=== PATIENT | female | born 1965 | race Caucasian/White ===

== ENCOUNTER 2016-10-23 18:34 | Emergency (ER) | payer SELFPAY ==
--- NOTE | 2016-10-23 19:55 | ED NURSING NOTES ---
Clinical Report - Nurses [place] [address] [place] [address] 10/23/2016 18:38 Patient: LENA PEGUERO TRIAGE Triage time 18:43. Acuity: LEVEL 4. Chief Complaint: INJURY TO RIGHT and LEFT HAND. INJURY TO THE RIGHT MIDDLE FINGER, RIGHT RING FINGER, LEFT MIDDLE FINGER and LEFT INDEX FINGER. JAZMYN COMA SCORE: [place] Coma Scale: 15- eyes open spontaneously (4); best verbal response- oriented x 4 (5); best motor response- obeys commands (6). --18:51 Ramsey Miller R.N. 18:43 10/23/16. BP: 147/95. HR: 87. RR: 20. O2 saturation: 99% on room air. Temp: 98.1 F (oral). Pain level now: 02/07. --18:51 Ramsey Miller R.N. Weight: 72.5 kg stated. Height/Length: 63 inches Per Patient. BMI: 28.3. --18:45 Ramsey Miller R.N. Medications Vitamin D Oral. --18:45 Ramsey Miller R.N. OTC vitamins . --18:45 Ramsey Miller R.N. Allergies wheat . --18:44 Ramsey Miller R.N. Gluten. --18:44 Ramsey Miller R.N. History Arrived by private vehicle. Historian: patient and family. Accompanied by family. This occurred just prior to arrival. ( Fingers were caught between heavy well parts). 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 SOCIAL HX: Never smoker. No alcohol use or drug use. ABUSE ASSESSMENT: No report of abuse. --18:51 Ramsey Miller R.N. PAST MEDICAL HX: Tetanus status: unknown. --18:54 Ramsey Miller R.N. PROBLEMS: Diverticulitis. Constocondritis. Hypertension. Seizure. --18:45 Ramsey Miller R.N. ADDITIONAL SURGERIES: Cholecystectomy. Hysterectomy. --18:45 Ramsey Miller R.N. Interventions ID band on patient. To treatment room. --18:51 Ramsey iMller R.N. PHYSICAL ASSESSMENT GENERAL / NEURO / PSYCH: Oriented X 4. Alert. Appears in pain and anxious. EXTREMITIES: ( Left 3rd & 4th fingers with crush injuries, 3rd finger has nailbed lac. Right 3rd & 4th fingers are bruised at the nailbeds from crush injury. +CMS.). --18:55 Ramsey Miller R.N. NURSING PROGRESS NOTES Reassurance given. Two patient identifiers checked. Call light placed in reach. Side rails up x 2. Safety measures: (seizure pads on). Bed placed in lowest position. Brakes of bed on. Patient ready for evaluation- chart flagged. --18:56 Ramsey Miller R.N. 19:22 10/23/2016 Ancef (CeFAZolin Sodium) IM 2 gm given. Given in the right gluteus preeti. Allergies verified and confirmed 5 rights. --19:22 Joceline Aaron R.N. Wound cleansed with sterile saline and chlorhexidine (Removed some antony stuck underneath the laceration). --19:27 [facility]. DISPOSITION / DISCHARGE 20:08 10/23/16. No learning barriers present. Discharge instructions provided and reviewed with the patient and spouse. Reviewed warnings. Reviewed medication(s). Treatments reviewed. Reviewed referrals. Activity restrictions reviewed. Patient verbalized understanding. Written instructions provided in [place]. The patient was discharged home and accompanied by spouse. She left the Emergency Department ambulatory and via private vehicle. Spouse driving. --20:08 Tea Gómez R.N. 20:06 10/23/16. BP: 142/83. HR: 80. RR: 15. O2 saturation: 99%. Temp: deferred. Pain level now: 12/08. --20:08 Tea Gómez R.N. Locked/Released at 10/23/2016 20:14 by Tea Gómez R.N.
--- NOTE | 2016-10-23 19:55 | ED ORDER SUMMARY ---
..... Patient: LENA PEGUERO OrderSheet [facility] VisitID: [id number] [address] [place] [address] 50y, F Registration Date/Time: 10/23/2016 ORDER SHEET Weight: 72.5 kg (stated) Allergies: wheat , Gluten GENERAL ORDERS: Hand 3 or 4V Bilat Urgent (18:48 10/23/2016 EKdevinlekristyn P.A.-C) (Ack 18:49 Nicole) (19:22 CBradburn R.N.) Splint (Finger) (Both) (Middle) (Aluminum Foam) (19:50 10/23/2016 EKchina P.A.-C) (20:01 CBradburn R.N.) MEDICATION ORDERS: Ancef IM 2 gm (NOW) (19:13 10/23/2016 Wu P.A.-C) (Ack 19:13 CBradburn R.N.) (19:22 CBradburn R.N.) IV FLUIDS: ORDER SHEET NOTES: [Electronically signed by Tea Gómez R.N. (20:14 10/23/2016)] [Electronically signed by Emily Roth P.A.-C (21:58 10/23/2016)] [Electronically locked/signed by Tea Gómez R.N. (20:14 10/23/2016)]
--- NOTE | 2016-10-23 19:55 | ED NURSING NOTES ---
Clinical Report - Nurses [place] [address] [place] [address] 10/23/2016 18:38 Patient: LENA PEGUERO TRIAGE Triage time 18:43. Acuity: LEVEL 4. Chief Complaint: INJURY TO RIGHT and LEFT HAND. INJURY TO THE RIGHT MIDDLE FINGER, RIGHT RING FINGER, LEFT MIDDLE FINGER and LEFT INDEX FINGER. JAZMYN COMA SCORE: [place] Coma Scale: 15- eyes open spontaneously (4); best verbal response- oriented x 4 (5); best motor response- obeys commands (6). --18:51 Ramsey Miller R.N. 18:43 10/23/16. BP: 147/95. HR: 87. RR: 20. O2 saturation: 99% on room air. Temp: 98.1 F (oral). Pain level now: 02/07. --18:51 Ramsey Miller R.N. Weight: 72.5 kg stated. Height/Length: 63 inches Per Patient. BMI: 28.3. --18:45 Ramsey Miller R.N. Medications Vitamin D Oral. --18:45 Ramsey Miller R.N. OTC vitamins . --18:45 Ramsey Miller R.N. Allergies wheat . --18:44 Ramsey Miller R.N. Gluten. --18:44 Ramsey Miller R.N. History Arrived by private vehicle. Historian: patient and family. Accompanied by family. This occurred just prior to arrival. ( Fingers were caught between heavy well parts). 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 SOCIAL HX: Never smoker. No alcohol use or drug use. ABUSE ASSESSMENT: No report of abuse. --18:51 Ramsey Miller R.N. PAST MEDICAL HX: Tetanus status: unknown. --18:54 Ramsey Miller R.N. PROBLEMS: Diverticulitis. Constocondritis. Hypertension. Seizure. --18:45 Ramsey Miller R.N. ADDITIONAL SURGERIES: Cholecystectomy. Hysterectomy. --18:45 Ramsey Miller R.N. Interventions ID band on patient. To treatment room. --18:51 Ramsey Miller R.N. PHYSICAL ASSESSMENT GENERAL / NEURO / PSYCH: Oriented X 4. Alert. Appears in pain and anxious. EXTREMITIES: ( Left 3rd & 4th fingers with crush injuries, 3rd finger has nailbed lac. Right 3rd & 4th fingers are bruised at the nailbeds from crush injury. +CMS.). --18:55 Ramsey Miller R.N. NURSING PROGRESS NOTES Reassurance given. Two patient identifiers checked. Call light placed in reach. Side rails up x 2. Safety measures: (seizure pads on). Bed placed in lowest position. Brakes of bed on. Patient ready for evaluation- chart flagged. --18:56 Ramsey Miller R.N. 19:22 10/23/2016 Ancef (CeFAZolin Sodium) IM 2 gm given. Given in the right gluteus preeti. Allergies verified and confirmed 5 rights. --19:22 Joceline Aaron R.N. Wound cleansed with sterile saline and chlorhexidine (Removed some antony stuck underneath the laceration). --19:27 [facility]. DISPOSITION / DISCHARGE 20:08 10/23/16. No learning barriers present. Discharge instructions provided and reviewed with the patient and spouse. Reviewed warnings. Reviewed medication(s). Treatments reviewed. Reviewed referrals. Activity restrictions reviewed. Patient verbalized understanding. Written instructions provided in [place]. The patient was discharged home and accompanied by spouse. She left the Emergency Department ambulatory and via private vehicle. Spouse driving. --20:08 Tea Gómez R.N. 20:06 10/23/16. BP: 142/83. HR: 80. RR: 15. O2 saturation: 99%. Temp: deferred. Pain level now: 12/08. --20:08 Tea Gómez R.N. Locked/Released at 10/23/2016 20:14 by Tea Gómez R.N.
--- NOTE | 2016-10-23 19:55 | ED CLINICAL REPORT ---
Clinical Report - Physicians/Mid Levels [facility] [address] [place] [address] 10/23/2016 18:38 Patient: LENA PEGUERO [facility]#: [id number] Time Seen: 18:40 Oct 23 2016. Arrived- By private vehicle. HISTORY OF PRESENT ILLNESS Chief Complaint: Injury to the right and left hand. The injury happened just prior to arrival. Occurred at home. The patient sustained a crush injury. Patient is experiencing severe pain. Patient denies injury to the head or neck. 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 Patient is right-hand dominant. Last rangers of the middle digits. There is a darker just prior to arrival.). REVIEW OF SYSTEMS The patient sustained a laceration. No tingling or numbness. All systems otherwise negative, except as recorded above. PAST HISTORY The patient's dominant hand is the right. She has not had a prior injury to the same area. SOCIAL HISTORY Never smoker. No alcohol use or drug use. ADDITIONAL NOTES The nursing notes have been reviewed. PHYSICAL EXAM Vital Signs: 10/23/2016 20:06 BP: 142/83. HR: 80. RR: 15. O2 saturation: 99%. Pain level now: 8/10. Appearance: Alert. Head: Head atraumatic. Neck: Normal inspection. Neck supple. CVS: Normal heart rate and rhythm. Heart sounds normal. Respiratory: No respiratory distress. Breath sounds normal. Extremities: Tip of left index finger: (minor swelling/ tenderness, no nail injury.). Tip of right middle finger: (subungal hematoma, small). Tip of left middle finger: laceration; (lac proximal to nail bed). No subungual hematoma or nail avulsion on the left middle finger or tip amputation of the left middle finger. No hand injury. Neuro, Vascular and Tendons: Vascular status intact. No pulse deficit present. Motor intact. No functional tendon deficit or tendon injury seen. Neuro: Oriented X 3. PROGRESS AND PROCEDURES Laceration Repair: Time: 1949. Location: (left middle digit). Time-out completed immediately before the procedure. Length: 1 cm. Complexity: simple (local anesthesia used and sutured). Wound depth/shape- linear and involving fascia. Exam note: nail bed laceration. Neuro/vascular/tendon status. Tendon examined. No sensory deficit or motor deficit distally. No tendon deficit. Anesthesia provided by digital block using 0.25% Marcaine. Prepped with Betadine. Wound explored, cleansed and irrigated extensively. Closure of superficial layer: interrupted 4-0 (2 sutures). Post-procedure: she is stable and there are no complications. Dressing applied. Splint Application: Time: 1999. Aluminum-foam volar splint applied to left middle finger. Splint applied by tech with direct supervision by me. Reassessed extremity following splint application. Neurovascular intact. Follow-up recommended within 5 days. Course of Care: the left digit after anesthetic was sutured and nail placed into the nail bed fold, we'll treat as open fracture, as there is nail bed laceration. Patient was givenim ancef. Pt otherwise stable. Full rom of the digit. NO signs of infectious etiology. 10/23/2016 20:06 BP: 142/83. HR: 80. RR: 15. O2 saturation: 99%. Pain level now: 8/10. Patient is stable. Symptoms better. Patient/family counseled. Disposition: Discharged. CLINICAL IMPRESSION Closed nondisplaced middle and distal phalanx fracture of the right middle finger. Distal phalanx fracture of the left middle finger. Subungual hematoma of the right middle finger. INSTRUCTIONS Apply ice. Limit use of your left hand for seven days (due to MEDICAL INJURY). Do not work for four days. (alternate 800 mg motrin with 650 mg tylenol). Prescription Medications: Cephalexin 500 mg: take 1 capsule orally every 8 hours for 10 days. No refill. Ibuprofen 800 mg tablets: take 1 tablet orally every 8 hours for 5 days. Dispense twenty (20). No refill. OTC Medications: Tylenol ER 650 mg (available over the counter): take 1 orally every 8 hours for 5 days, as needed for pain. Dispense fifteen (15). No refill. Follow-up: Follow up with a specialist. Follow-up with: [facility], , [address] [place], [address] (Electronically signed by Emily Roth P.A.-C 10/23/2016 21:58) Addenda for LENA PEGUERO VisitID: [id number] Date: 10/23/2016 10/23/2016 20:26 I personally performed the procedure as documented: 4 prong splint applied on middle finger of Righ hand. Non adhearant dressing applie to middle finger of the left and. Alluminum foam splint applied on the middle finger of the left hand. (Electronically signed by Giana Puentes - 10/23/2016 20:26)
--- NOTE | 2016-10-23 19:55 | ED CLINICAL REPORT ---
Clinical Report - Physicians/Mid Levels [facility] [address] [place] [address] 10/23/2016 18:38 [id number] Time Seen: 18:40 Oct 23 2016. Arrived- By private vehicle. HISTORY OF PRESENT ILLNESS Chief Complaint: Injury to the right and left hand. The injury happened just prior to arrival. Occurred at home. The patient sustained a crush injury. Patient is experiencing severe pain. Patient denies injury to the head or neck. 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 Patient is right-hand dominant. Last rangers of the middle digits. There is a darker just prior to arrival.). REVIEW OF SYSTEMS The patient sustained a laceration. No tingling or numbness. All systems otherwise negative, except as recorded above. PAST HISTORY The patient's dominant hand is the right. She has not had a prior injury to the same area. SOCIAL HISTORY Never smoker. No alcohol use or drug use. ADDITIONAL NOTES The nursing notes have been reviewed. PHYSICAL EXAM Vital Signs: 10/23/2016 20:06 BP: 142/83. HR: 80. RR: 15. O2 saturation: 99%. Pain level now: 8/10. Appearance: Alert. Head: Head atraumatic. Neck: Normal inspection. Neck supple. CVS: Normal heart rate and rhythm. Heart sounds normal. Respiratory: No respiratory distress. Breath sounds normal. Extremities: Tip of left index finger: (minor swelling/ tenderness, no nail injury.). Tip of right middle finger: (subungal hematoma, small). Tip of left middle finger: laceration; (lac proximal to nail bed). No subungual hematoma or nail avulsion on the left middle finger or tip amputation of the left middle finger. No hand injury. Neuro, Vascular and Tendons: Vascular status intact. No pulse deficit present. Motor intact. No functional tendon deficit or tendon injury seen. Neuro: Oriented X 3. PROGRESS AND PROCEDURES Laceration Repair: Time: 1949. Location: (left middle digit). Time-out completed immediately before the procedure. Length: 1 cm. Complexity: simple (local anesthesia used and sutured). Wound depth/shape- linear and involving fascia. Exam note: nail bed laceration. Neuro/vascular/tendon status. Tendon examined. No sensory deficit or motor deficit distally. No tendon deficit. Anesthesia provided by digital block using 0.25% Marcaine. Prepped with Betadine. Wound explored, cleansed and irrigated extensively. Closure of superficial layer: interrupted 4-0 (2 sutures). Post-procedure: she is stable and there are no complications. Dressing applied. Splint Application: Time: 1999. Aluminum-foam volar splint applied to left middle finger. Splint applied by tech with direct supervision by me. Reassessed extremity following splint application. Neurovascular intact. Follow-up recommended within 5 days. Course of Care: the left digit after anesthetic was sutured and nail placed into the nail bed fold, we'll treat as open fracture, as there is nail bed laceration. Patient was givenim ancef. Pt otherwise stable. Full rom of the digit. NO signs of infectious etiology. 10/23/2016 20:06 BP: 142/83. HR: 80. RR: 15. O2 saturation: 99%. Pain level now: 8/10. Patient is stable. Symptoms better. Patient/family counseled. Disposition: Discharged. CLINICAL IMPRESSION Closed nondisplaced middle and distal phalanx fracture of the right middle finger. Distal phalanx fracture of the left middle finger. Subungual hematoma of the right middle finger. INSTRUCTIONS Apply ice. Limit use of your left hand for seven days (due to MEDICAL INJURY). Do not work for four days. (alternate 800 mg motrin with 650 mg tylenol). Prescription Medications: Cephalexin 500 mg: take 1 capsule orally every 8 hours for 10 days. No refill. Ibuprofen 800 mg tablets: take 1 tablet orally every 8 hours for 5 days. Dispense twenty (20). No refill. OTC Medications: Tylenol ER 650 mg (available over the counter): take 1 orally every 8 hours for 5 days, as needed for pain. Dispense fifteen (15). No refill. Follow-up: Follow up with a specialist. Follow-up with: [facility], , [address] [place], [address] (Electronically signed by Emily Roth P.A.-C 10/23/2016 21:58) Addenda for LENA PEGUERO VisitID: [id number] Date: 10/23/2016 10/23/2016 20:26 I personally performed the procedure as documented: 4 prong splint applied on middle finger of Righ hand. Non adhearant dressing applie to middle finger of the left and. Alluminum foam splint applied on the middle finger of the left hand. (Electronically signed by Giana Puentes - 10/23/2016 20:26)
--- NOTE | 2016-10-23 19:55 | ED ORDER SUMMARY ---
..... Patient: LENA PEGUERO OrderSheet [facility] VisitID: [id number] [address] [place] [address] 50y, F Registration Date/Time: 10/23/2016 ORDER SHEET Weight: 72.5 kg (stated) Allergies: wheat , Gluten GENERAL ORDERS: Hand 3 or 4V Bilat Urgent (18:48 10/23/2016 EKdevinlekristyn P.A.-C) (Ack 18:49 Nicole) (19:22 CBradburn R.N.) Splint (Finger) (Both) (Middle) (Aluminum Foam) (19:50 10/23/2016 EKchina P.A.-C) (20:01 CBradburn R.N.) MEDICATION ORDERS: Ancef IM 2 gm (NOW) (19:13 10/23/2016 Wu P.A.-C) (Ack 19:13 CBradburn R.N.) (19:22 CBradburn R.N.) IV FLUIDS: ORDER SHEET NOTES: [Electronically signed by Tea Gómez R.N. (20:14 10/23/2016)] [Electronically signed by Emily Roth P.A.-C (21:58 10/23/2016)] [Electronically locked/signed by Tea Gómez R.N. (20:14 10/23/2016)]
--- NOTE | 2016-10-23 20:56 | DIAGNOSTIC IMAGING REPORT ---
PROCEDURE: XR HAND 3 OR 4 VIEWS BILATERAL INDICATION: TRAUMA/INJURY TECHNIQUE: Four views of each hand COMPARISON: None. FINDINGS: Right hand: Transverse, nondisplaced fracture across the tuft of the third distal phalanx. No other fractures. Normal mineralization and normal bony alignment. Left hand: Mildly comminuted, moderately displaced T-shaped fracture involving the third distal phalanx. Normal bony alignment. Normal mineralization. IMPRESSION: 1. Fractures of bilateral third distal phalanx katelyn. If there are nailbed disruptions, treat as open fractures.
--- NOTE | 2016-10-23 21:59 | ED MED RECONCILIATION SUMMARY ---
Patient: LENA PEGUERO Medication Reconciliation Report [facility] VisitID: [id number] [address] [place] [address] 50y, F Registration Date/Time: 10/23/2016 Weight: 72.5 kg Height/Length: 63 in. BMI: 28.3 ALLERGIES: Gluten, wheat The patient's Home Medications are listed below: THE FOLLOWING MEDICATIONS NEED TO BE RECONCILED: OTC vitamins Vitamin D Oral The source(s) of the original Home Medication information: Not obtained. The following Medications were given to the patient in the Emergency Department: Ancef [IM] IM 2 gm, administered: 10/23/2016 7:22:00 PM The following Medications were prescribed to the patient: Cephalexin 500 mg: take 1 capsule orally every 8 hours for 10 days. No refill. -- Emily Roth, P.A.-C Ibuprofen 800 mg tablets: take 1 tablet orally every 8 hours for 5 days. Dispense twenty (20). No refill. -- Emily Roth, P.A.-C Tylenol ER 650 mg (available over the counter): take 1 orally every 8 hours for 5 days, as needed for pain. Dispense fifteen (15). No refill. -- Emily Roth, P.A.-C
--- NOTE | 2016-10-23 21:59 | ED MAR SUMMARY ---
..... Medication Administration Record [facility] [address] [address] Patient: LENA PEGUERO Visit ID: [id number] 50y, F Weight: 72.5 kg Height/Length: 63 in BMI: 28.3 ALLERGIES: Gluten, wheat Given 19:22 10/23/2016 Joceline Aaron R.N. Medication Administered: ANCEF [IM] (CEFAZOLIN SODIUM), Dose: 2 gm IM. Medication Ordered: Ancef IM 2 gm (NOW).
--- NOTE | 2016-10-23 21:59 | ED MED RECONCILIATION SUMMARY ---
Patient: LENA PEGUERO Medication Reconciliation Report [facility] VisitID: [id number] [address] [place] [address] 50y, F Registration Date/Time: 10/23/2016 Weight: 72.5 kg Height/Length: 63 in. BMI: 28.3 ALLERGIES: Gluten, wheat The patient's Home Medications are listed below: THE FOLLOWING MEDICATIONS NEED TO BE RECONCILED: OTC vitamins Vitamin D Oral The source(s) of the original Home Medication information: Not obtained. The following Medications were given to the patient in the Emergency Department: Ancef [IM] IM 2 gm, administered: 10/23/2016 7:22:00 PM The following Medications were prescribed to the patient: Cephalexin 500 mg: take 1 capsule orally every 8 hours for 10 days. No refill. -- Emily Roth, P.A.-C Ibuprofen 800 mg tablets: take 1 tablet orally every 8 hours for 5 days. Dispense twenty (20). No refill. -- Emily Roth, P.A.-C Tylenol ER 650 mg (available over the counter): take 1 orally every 8 hours for 5 days, as needed for pain. Dispense fifteen (15). No refill. -- Emily Roth, P.A.-C
--- NOTE | 2016-10-23 21:59 | ED DISCHARGE INSTRUCTIONS ---
Patient: LENA PEGUERO General Instructions [facility] VisitID: [id number] [address] [place], [place] [id number] 50y, F Registration Date/Time: 10/23/2016 Closed nondisplaced middle and distal phalanx fracture of the right middle finger. Distal phalanx fracture of the left middle finger. Subungual hematoma of the right middle finger. INSTRUCTIONS Apply ice. Limit use of your left hand for seven days (due to MEDICAL INJURY). Do not work for four days. (alternate 800 mg motrin with 650 mg tylenol). Prescription Medications: Cephalexin 500 mg: take 1 capsule orally every 8 hours for 10 days. No refill. Ibuprofen 800 mg tablets: take 1 tablet orally every 8 hours for 5 days. Dispense twenty (20). No refill. OTC Medications: Tylenol ER 650 mg (available over the counter): take 1 orally every 8 hours for 5 days, as needed for pain. Dispense fifteen (15). No refill. Follow-up: Follow up with a specialist. Follow-up with: [facility], , [address], [facility], [id number] ADDITIONAL INFORMATION Fracture: Finger [Closed] You have a fracture of your finger (broken finger). This causes local pain, swelling and bruising. This injury takes about four weeks to heal. Finger injuries are often treated with a splint, cast or by taping the injured finger to the next one ("daisy taping"). This protects the injured finger and holds the bone in position while it heals. More serious fractures may require surgery. If the FINGERNAIL has been severely injured, it will probably fall off in 1-2 weeks. A new fingernail will usually start to grow back within a month. Home Care: 1) Keep your hand elevated to reduce pain and swelling. When sitting or lying down elevate your arm above the level of your heart. You can do this by placing your arm on a pillow that rests on your chest or on a pillow at your side. This is most important during the first 48 hours after injury. 2) Apply an ice pack (ice cubes in a plastic bag, wrapped in a towel) over the injured area for 20 minutes every 1-2 hours the first day for pain relief. Continue this 3-4 times a day until the pain and swelling goes away. 3) Keep the cast/splint completely dry at all times. Bathe with your cast/splint out of the water, protected with a large plastic bag, rubber-banded at the top end. If a fiberglass cast/splint gets wet, you can dry it with a hair-dryer. 4) If daisy tape was applied and it becomes wet or dirty, change it. You may replace it with paper, plastic or cloth tape. Cloth tape and paper tapes must be kept dry. Keep the daisy tape in place for at least four weeks. 5) You may use acetaminophen (Tylenol) or ibuprofen (Motrin, Advil) to control pain, unless another pain medicine was prescribed. [ NOTE : If you have chronic liver or kidney disease or ever had a stomach ulcer or GI bleeding, talk with your doctor before using these medicines.] Follow Up with your doctor within one week, or as advised by our staff, to be sure the bone is healing properly, . [NOTE: A radiologist will review any X-rays that were taken. We will notify you of any new findings that may affect your care.] Get Prompt Medical Attention if any of the following occur: -- The plaster cast or splint becomes wet or soft -- The fiberglass cast or splint remains wet for more than 24 hours -- Pain or swelling increases -- Redness, warmth, swelling, drainage from the wound or foul odor from a cast or splint -- Finger becomes more cold, blue, numb or tingly Fracture:Finger [Open] You have a fracture of your finger (broken finger) with a nearby cut, puncture or deep scrape. This causes local pain, swelling and bruising. Because of the open injury, there is a risk of infection in the skin and bone. Antibiotics will be used to lower the risk of infection. This injury takes about four weeks to heal. Finger injuries are often treated with a splint, cast or by taping the injured finger to the next one ("daisy taping"). This protects the injured finger and holds the bone in position while it heals. More serious fractures may require surgery. If the FINGERNAIL has been severely injured, it will probably fall off in 1-2 weeks. A new fingernail will usually start to grow back within a month. Home Care: Keep your hand elevated to reduce pain and swelling. When sitting or lying down elevate your arm above the level of your heart. You can do this by placing your arm on a pillow that rests on your chest or on a pillow at your side. This is most important during the first 48 hours after injury. Apply an ice pack (ice cubes in a plastic bag, wrapped in a towel) over the injured area for 20 minutes every 1-2 hours the first day for pain relief. Continue this 3-4 times a day until the pain and swelling goes away. Keep the cast/splint completely dry at all times. Bathe with your cast/splint out of the water, protected with a large plastic bag, rubber-banded at the top end. If a fiberglass cast/splint gets wet, you can dry it with a hair-dryer. If daisy tape was applied and it becomes wet or dirty, change it. You may replace it with paper, plastic or cloth tape. Cloth tape and paper tapes must be kept dry. Keep the daisy tape in place for at least four weeks. You may use acetaminophen (Tylenol) or ibuprofen (Motrin, Advil) to control pain, unless another pain medicine was prescribed. [ NOTE : If you have chronic liver or kidney disease or ever had a stomach ulcer or GI bleeding, talk with your doctor before using these medicines.] Take all antibiotics until finished. Follow Up with your doctor within one week, or as advised by our staff, to be sure the bone is healing properly, . [NOTE: A radiologist will review any X-rays that were taken. We will notify you of any new findings that may affect your care.] Return Promptly or contact your doctor if any of the following occur: The plaster cast or splint becomes wet or soft The fiberglass cast or splint remains wet for more than 24 hours Pain or swelling increase Finger becomes cold, blue, numb or tingly Redness, warmth, swelling, drainage from the wound or foul odor from a cast or splint Fever of 100.4F (38C) or higher, or as directed by your healthcare provider Cephalexin Monohydrate Oral tablet What is this medicine? CEPHALEXIN (sef a ATILIO in) is a cephalosporin antibiotic. It is used to treat certain kinds of bacterial infections It will not work for colds, flu, or other viral infections. How should I use this medicine? Take this medicine by mouth with a full glass of water. Follow the directions on the prescription label. This medicine can be taken with or without food. Take your medicine at regular intervals. Do not take your medicine more often than directed. Take all of your medicine as directed even if you think you are better. Do not skip doses or stop your medicine early. Talk to your regional marketing manager regarding the use of this medicine in children. While this drug may be prescribed for selected conditions, precautions do apply. What side effects may I notice from receiving this medicine? Side effects that you should report to your doctor or health rn urgent care as soon as possible: allergic reactions like skin rash, itching or hives, swelling of the face, lips, or tongue breathing problems pain or trouble passing urine redness, blistering, peeling or loosening of the skin, including inside the mouth severe or watery diarrhea unusually weak or tired yellowing of the eyes, skin Side effects that usually do not require medical attention (report to your doctor or health rn urgent care if they continue or are bothersome): gas or heartburn genital or anal irritation headache joint or muscle pain nausea, vomiting What may interact with this medicine? probenecid some other antibiotics What if I miss a dose? If you miss a dose, take it as soon as you can. If it is almost time for your next dose, take only that dose. Do not take double or extra doses. There should be at least 4 to 6 hours between doses. Where should I keep my medicine? Keep out of the reach of children. Store at room temperature between 59 and 86 degrees F (15 and 30 degrees C). Throw away any unused medicine after the expiration date. What should I tell my health care provider before I take this medicine? They need to know if you have any of these conditions: kidney disease stomach or intestine problems, especially colitis an unusual or allergic reaction to cephalexin, other cephalosporins, penicillins, other antibiotics, medicines, foods, dyes or preservatives or trying to get breast-feeding What should I watch for while using this medicine? Tell your doctor or health rn urgent care if your symptoms do not begin to improve in a few days. Do not treat diarrhea with over the counter products. Contact your doctor if you have diarrhea that lasts more than 2 days or if it is severe and watery. If you have diabetes, you may get a false-positive result for sugar in your urine. Check with your doctor or health rn urgent care. You have been given the following additional information: Fracture, Finger (Closed) Fracture, Finger (Open) Cephalexin Monohydrate Oral tablet Limit use of your left hand for seven days (due to MEDICAL INJURY). Do not work for four days. (Electronically signed by Emily Roth P.A.-C 10/23/2016 21:58)
--- NOTE | 2016-10-23 21:59 | ED MAR SUMMARY ---
..... Medication Administration Record [facility] [address] [place] [address] Patient: LENA PEGUERO Visit ID: [id number] 50y, F Weight: 72.5 kg Height/Length: 63 in BMI: 28.3 ALLERGIES: Gluten, wheat Given 19:22 10/23/2016 Joceline Aaron R.N. Medication Administered: ANCEF [IM] (CEFAZOLIN SODIUM), Dose: 2 gm IM. Medication Ordered: Ancef IM 2 gm (NOW).
--- NOTE | 2016-10-23 21:59 | ED DISCHARGE INSTRUCTIONS ---
Patient: LENA PEGUERO General Instructions [facility] VisitID: [id number] [address] [place], [place] [id number] 50y, F Registration Date/Time: 10/23/2016 Closed nondisplaced middle and distal phalanx fracture of the right middle finger. Distal phalanx fracture of the left middle finger. Subungual hematoma of the right middle finger. INSTRUCTIONS Apply ice. Limit use of your left hand for seven days (due to MEDICAL INJURY). Do not work for four days. (alternate 800 mg motrin with 650 mg tylenol). Prescription Medications: Cephalexin 500 mg: take 1 capsule orally every 8 hours for 10 days. No refill. Ibuprofen 800 mg tablets: take 1 tablet orally every 8 hours for 5 days. Dispense twenty (20). No refill. OTC Medications: Tylenol ER 650 mg (available over the counter): take 1 orally every 8 hours for 5 days, as needed for pain. Dispense fifteen (15). No refill. Follow-up: Follow up with a specialist. Follow-up with: [facility], , [address], [facility], [id number] ADDITIONAL INFORMATION Fracture: Finger [Closed] You have a fracture of your finger (broken finger). This causes local pain, swelling and bruising. This injury takes about four weeks to heal. Finger injuries are often treated with a splint, cast or by taping the injured finger to the next one ("daisy taping"). This protects the injured finger and holds the bone in position while it heals. More serious fractures may require surgery. If the FINGERNAIL has been severely injured, it will probably fall off in 1-2 weeks. A new fingernail will usually start to grow back within a month. Home Care: 1) Keep your hand elevated to reduce pain and swelling. When sitting or lying down elevate your arm above the level of your heart. You can do this by placing your arm on a pillow that rests on your chest or on a pillow at your side. This is most important during the first 48 hours after injury. 2) Apply an ice pack (ice cubes in a plastic bag, wrapped in a towel) over the injured area for 20 minutes every 1-2 hours the first day for pain relief. Continue this 3-4 times a day until the pain and swelling goes away. 3) Keep the cast/splint completely dry at all times. Bathe with your cast/splint out of the water, protected with a large plastic bag, rubber-banded at the top end. If a fiberglass cast/splint gets wet, you can dry it with a hair-dryer. 4) If daisy tape was applied and it becomes wet or dirty, change it. You may replace it with paper, plastic or cloth tape. Cloth tape and paper tapes must be kept dry. Keep the daisy tape in place for at least four weeks. 5) You may use acetaminophen (Tylenol) or ibuprofen (Motrin, Advil) to control pain, unless another pain medicine was prescribed. [ NOTE : If you have chronic liver or kidney disease or ever had a stomach ulcer or GI bleeding, talk with your doctor before using these medicines.] Follow Up with your doctor within one week, or as advised by our staff, to be sure the bone is healing properly, . [NOTE: A radiologist will review any X-rays that were taken. We will notify you of any new findings that may affect your care.] Get Prompt Medical Attention if any of the following occur: -- The plaster cast or splint becomes wet or soft -- The fiberglass cast or splint remains wet for more than 24 hours -- Pain or swelling increases -- Redness, warmth, swelling, drainage from the wound or foul odor from a cast or splint -- Finger becomes more cold, blue, numb or tingly Fracture:Finger [Open] You have a fracture of your finger (broken finger) with a nearby cut, puncture or deep scrape. This causes local pain, swelling and bruising. Because of the open injury, there is a risk of infection in the skin and bone. Antibiotics will be used to lower the risk of infection. This injury takes about four weeks to heal. Finger injuries are often treated with a splint, cast or by taping the injured finger to the next one ("daisy taping"). This protects the injured finger and holds the bone in position while it heals. More serious fractures may require surgery. If the FINGERNAIL has been severely injured, it will probably fall off in 1-2 weeks. A new fingernail will usually start to grow back within a month. Home Care: Keep your hand elevated to reduce pain and swelling. When sitting or lying down elevate your arm above the level of your heart. You can do this by placing your arm on a pillow that rests on your chest or on a pillow at your side. This is most important during the first 48 hours after injury. Apply an ice pack (ice cubes in a plastic bag, wrapped in a towel) over the injured area for 20 minutes every 1-2 hours the first day for pain relief. Continue this 3-4 times a day until the pain and swelling goes away. Keep the cast/splint completely dry at all times. Bathe with your cast/splint out of the water, protected with a large plastic bag, rubber-banded at the top end. If a fiberglass cast/splint gets wet, you can dry it with a hair-dryer. If daisy tape was applied and it becomes wet or dirty, change it. You may replace it with paper, plastic or cloth tape. Cloth tape and paper tapes must be kept dry. Keep the daisy tape in place for at least four weeks. You may use acetaminophen (Tylenol) or ibuprofen (Motrin, Advil) to control pain, unless another pain medicine was prescribed. [ NOTE : If you have chronic liver or kidney disease or ever had a stomach ulcer or GI bleeding, talk with your doctor before using these medicines.] Take all antibiotics until finished. Follow Up with your doctor within one week, or as advised by our staff, to be sure the bone is healing properly, . [NOTE: A radiologist will review any X-rays that were taken. We will notify you of any new findings that may affect your care.] Return Promptly or contact your doctor if any of the following occur: The plaster cast or splint becomes wet or soft The fiberglass cast or splint remains wet for more than 24 hours Pain or swelling increase Finger becomes cold, blue, numb or tingly Redness, warmth, swelling, drainage from the wound or foul odor from a cast or splint Fever of 100.4F (38C) or higher, or as directed by your healthcare provider Cephalexin Monohydrate Oral tablet What is this medicine? CEPHALEXIN (sef a ATILIO in) is a cephalosporin antibiotic. It is used to treat certain kinds of bacterial infections It will not work for colds, flu, or other viral infections. How should I use this medicine? Take this medicine by mouth with a full glass of water. Follow the directions on the prescription label. This medicine can be taken with or without food. Take your medicine at regular intervals. Do not take your medicine more often than directed. Take all of your medicine as directed even if you think you are better. Do not skip doses or stop your medicine early. Talk to your animal shelter supervisor regarding the use of this medicine in children. While this drug may be prescribed for selected conditions, precautions do apply. What side effects may I notice from receiving this medicine? Side effects that you should report to your doctor or health director of career resources as soon as possible: allergic reactions like skin rash, itching or hives, swelling of the face, lips, or tongue breathing problems pain or trouble passing urine redness, blistering, peeling or loosening of the skin, including inside the mouth severe or watery diarrhea unusually weak or tired yellowing of the eyes, skin Side effects that usually do not require medical attention (report to your doctor or health director of career resources if they continue or are bothersome): gas or heartburn genital or anal irritation headache joint or muscle pain nausea, vomiting What may interact with this medicine? probenecid some other antibiotics What if I miss a dose? If you miss a dose, take it as soon as you can. If it is almost time for your next dose, take only that dose. Do not take double or extra doses. There should be at least 4 to 6 hours between doses. Where should I keep my medicine? Keep out of the reach of children. Store at room temperature between 59 and 86 degrees F (15 and 30 degrees C). Throw away any unused medicine after the expiration date. What should I tell my health care provider before I take this medicine? They need to know if you have any of these conditions: kidney disease stomach or intestine problems, especially colitis an unusual or allergic reaction to cephalexin, other cephalosporins, penicillins, other antibiotics, medicines, foods, dyes or preservatives or trying to get breast-feeding What should I watch for while using this medicine? Tell your doctor or health director of career resources if your symptoms do not begin to improve in a few days. Do not treat diarrhea with over the counter products. Contact your doctor if you have diarrhea that lasts more than 2 days or if it is severe and watery. If you have diabetes, you may get a false-positive result for sugar in your urine. Check with your doctor or health director of career resources. You have been given the following additional information: Fracture, Finger (Closed) Fracture, Finger (Open) Cephalexin Monohydrate Oral tablet Limit use of your left hand for seven days (due to MEDICAL INJURY). Do not work for four days. (Electronically signed by Emily Roth P.A.-C 10/23/2016 21:58)
== END 2016-10-23 20:08 | disposition home or self-care (01) ==
LOC: ED SRH 18:34
DX: S62.633B Displaced fracture of distal phalanx of left middle finger, initial encounter for open fracture (principal); S61.313A Laceration without foreign body of left middle finger with damage to nail, initial encounter; S62.662A Nondisplaced fracture of distal phalanx of right middle finger, initial encounter for closed fracture; S60.131A Contusion of right middle finger with damage to nail, initial encounter; W23.0XXA Caught, crushed, jammed, or pinched between moving objects, initial encounter; Y93.89 Activity, other specified; Y99.9 Unspecified external cause status; Y92.009 Unspecified place in unspecified non-institutional (private) residence as the place of occurrence of the external cause; I10 Essential (primary) hypertension; Z91.018 Allergy to other foods